=== PATIENT | female | born 1985 | race Caucasian/White ===

== ENCOUNTER 2019-06-18 09:36 | Emergency (ER) | payer OTHER ==
[~2019-06-18] VITALS: Ht 162.6 cm; Wt 77.1 kg
[2019-06-18] MEDS ORDERED: PROPRANOLOL HCL40 MG PO (09:51)
[2019-06-18] MEDS ORDERED: HYDROXYZINE HCL25 MG PO (09:51)
[2019-06-18] MEDS ORDERED: ZITHROMAX250 MG PO (09:52)
[2019-06-18] MEDS ORDERED: TRAZODONE HCL50 MG PO (09:52)
[2019-06-18] MEDS ORDERED: ABILIFY15 MG PO ×2 (09:53→10:18)
[2019-06-18] MEDS ORDERED: MINIPRESS1 MG PO (09:54)
[2019-06-18] MEDS ORDERED: PROPRANOLOL HCL20 MG PO (10:18)
== END 2019-06-18 11:58 | disposition home or self-care (01) ==
LOC: ED 09:36
DX: F32.9 Major depressive disorder, single episode, unspecified (principal); F20.9 Schizophrenia, unspecified; I10 Essential (primary) hypertension; F17.200 Nicotine dependence, unspecified, uncomplicated; Z88.0 Allergy status to penicillin; Z79.899 Other long term (current) drug therapy
CPT/HCPCS: 80053; 80176; 81001; 84443; 85025; 99284; G0480

== ENCOUNTER 2020-03-10 21:57 | Emergency (ER) | payer OTHER ==
[~2020-03-10] VITALS: Ht 162.6 cm; Wt 77.1 kg
--- OUTSIDE RECORDS SUMMARY | ~2020-03-10 | XMS | Encounter Summary ---
Demographics + + + | Address | [address] | | | [place] [address] | + + + | Home Phone | | + + + | Preferred Language | Unknown | + + + | Marital Status | | + + + | Hindu Affiliation | Unknown | + + + | Race | Unknown | + + + | Ethnic Group | Unknown | + + + Author + + + | Author | [facility] | | | and [place] | + + + | Organization | [facility] | | | and [place] | + + + | Address | Unknown | + + + | Phone | Unavailable | + + + Support + + +---------+ + | Name | Relationship | Address | Phone | + + +---------+ + | Yodit Andrew | ECON | Unknown | | + + +---------+ + Care Team Providers + +------+ + | Care Waist Presser Name | Role | Phone | + +------+ + | Demetrius Chakraborty | PCP | | | MD | | | + +------+ + Reason for Visit +--------+ + | Reason | Comments | +--------+ + | URI | x 3 days; assoc. with yellow phlegm, sinus congestion w/ clear | | | drainage, body aches, sore throat, bilateral ear pain | +--------+ + Encounter Details +--------+---------+ + + + | Date | Type | Department | Care Team | Description | +--------+---------+ + + + | 06/14/ | Office | [facility] | Ronda Rodriguez | Exudative | | 2019 | Visit | [facility] [address] | [address] | pharyngitis (Primary | | | | [address] | [place] | Dx); Anxiety; | | | | [address] [facility] | [place] [address] | Essential | | | | [place] [address] | [phone] | hypertension | | | | [phone] | | | +--------+---------+ + + + Social History + + + +--------+ + | Tobacco Use | Types | Packs/Day | Years | Date | | | | | Used | | + + + +--------+ + | Current Every Day | Cigarettes | | | Started: 2005 | | Smoker | | | | | + + + +--------+ + + +---+---+---+ | Smokeless Tobacco: | | | | | Never Used | | | | + +---+---+---+ + + | Tobacco Cessation: Ready to Quit: No; Counseling Given: No | + + + + +---------+ + | Alcohol Use | Drinks/Week | oz/Week | Comments | + + +---------+ + | Never | | | | + + +---------+ + + + + + | Alcohol Habits | Answer | Date Recorded | + + + + | How often do you have a drink containing | Never | 06/14/2019 | | alcohol? | | | + + + + | How many drinks containing alcohol do you | Not asked | | | have on a typical day when you are | | | | drinking? | | | + + + + | How often do you have six or more drinks on | Not asked | | | one occasion? | | | + + + + + + + | Sex Assigned at | Date Recorded | | | | + + + | Not on file | | + + + + + + + | Job Start Date | Occupation | Industry | + + + + | Not on file | Not on file | Not on file | + + + + + + + + | Travel History | Travel Start | Travel End | + + + + + + | No recent travel history available. | + + documented as of this encounter Last Filed Vital Signs + + + + + | Vital Sign | Reading | Time Taken | Comments | + + + + + | Blood Pressure | 110/74 | 06/14/2019 11:34 AM | | | | | PDT | | + + + + + | Pulse | 110 | 06/14/2019 11:34 AM | | | | | PDT | | + + + + + | Temperature | 36.9 C (98.5 F) | 06/14/2019 11:34 AM | | | | | PDT | | + + + + + | Respiratory Rate | 16 | 06/14/2019 11:34 AM | | | | | PDT | | + + + + + | Oxygen Saturation | 98% | 06/14/2019 11:34 AM | | | | | PDT | | + + + + + | Inhaled Oxygen | - | - | | | Concentration | | | | + + + + + | Weight | 77.1 kg (170 lb) | 06/14/2019 11:34 AM | | | | | PDT | | + + + + + | Height | 162.6 cm (5' 4") | 06/14/2019 11:34 AM | | | | | PDT | | + + + + + | Body Mass Index | 29.18 | 06/14/2019 11:34 AM | | | | | PDT | | + + + + + documented in this encounter Patient Instructions Patient Instructions Ronda Rodriguez ARNP - 06/14/2019 11:20 AM PDTFormatting of this n ote might be different from the original. Life After Combat: Coping with an Anxiety Disorder In combat, you were under a lot of stress. You were in a strange place. You were away from your home and family. You lived with the constant threat of danger, violence, and personal h arm. You may have been asked to do things that challenged you in unexpected ways. c ulture can be demanding, with long days, short nights, and little room for emotion. Being br ave is standard practice. Anxiety is a healthy response to stress like this. But too much an xiety can be a problem. It may start kicking in at the wrong time. Or it may never go away. This causes physical and emotional discomfort. For some people anxiety can become so severe that it causes problems in daily life, at work or school, and in relationships. When anxiety becomes such a big part of your life, it s an anxiety disorder. Treatment can help you get your anxiety disorder under control. Talk to your healthcare pro vider about the best treatment options for you. How anxiety helps keep you safe Anxiety is an extreme form of worry and stress. When you re threatened, there s rarely time to decide how to react. Instead, the body s automatic defenses kick in. Your body is flooded with anxiety hormones. Thiscauses physical and emotional responses. Your heart pum ps harder. Your muscles tense. You tremble or sweat. Emotionally, you feel intense worry, fe ar, or dread. These sensations and emotions alert you to danger and help you react quickly. In response to a threat, anxiety prompts you to do what is needed to protect yourself. When anxiety becomes a problem In a war zone you re on high alert. Even if there is no immediate threat, danger can pres ent itself at any time. You may be worried for your own safety and the safety of others. It s natural to experience anxiety in this situation. But the anxious feeling may continue af ter you leave the war zone. Even back at home, you may be on constant alert. Or extreme anxi ety may pop up over minor issues. This unexplained anxiety makes it hard to live and enjoy y our daily life. If this sounds like what s happening to you, you may have an anxiety disor kirsten. Someone with an anxiety disorder may: Have panic attacks. A panic attack is an abrupt, intense anxiety response. It includes e xtreme anxiety, severe physical symptoms (like a pounding heart or difficulty breathing), an d a strong desire to escape. You may suddenly feel closed in or all alone, even if you re in an open, public place. Most panic attacks start suddenly, for no clear reason. The attack can last around 5 to 20 minutes. During an attack, you may think that you re having a hea rt attack, going crazy, or dying. Feel anxious all the time. You might worry about money, your family and friends, work, w ar, or the world in general. You might not even be sure what you re anxious about. Whateve r the cause of your worry, you have a strong fear that the worst will happen. This generaliz ed anxiety affects your quality of life and makes it hard to function. Have intense anxiety in certain situations. For example, you may fear spending time in t he dark or in enclosed spaces. These fears (sometimes called phobias) may relate to somethin g that happened in combat. Or they may not. To escape the anxiety, you may try to avoid the situation that prompts it. Such avoidance can have a serious impact on your life. Feel a strong need to act on anxiety-provoking thoughts. Sometimes an anxiety disorder m akes certain unwanted thoughts invade your mind. You know the thoughts are irrational. But y ou still feel a compulsive need to act on them, often in unhealthy ways. For example, you ma y constantly check your doors to make sure they re locked. Or you might walk a perimeter a round your house to make sure no one is watching. Doing so helps temporarily relieve the anx iety, but it can become very disruptive to daily life. Symptoms of anxiety disorders Anxiety makes you feel worried and fearful. It can also cause physical symptoms. In fact, m any people with anxiety disorders first go to the doctor to get checked for a physical probl em. Symptoms can include: A pounding or racing heartbeat Shortness of breath Chest pain Dizziness or lightheadedness Restlessness or problems sleeping Muscle tension, especially in the neck and shoulders Nausea or stomach problems Headaches Rapid speech Trembling Fear Feeling irritable or on edge all the time Trouble concentrating Treatment will help you get your life back You may think that asking for help is a sign of weakness. In fact, taking action to make yo ur life better takes a lot of courage. With the right treatment, most people learn to manage anxiety. Your treatment may include counseling, a process during which you talk about your anxiety and related problems with a trained professional. Medications may also be prescribed . For many people with anxiety disorders, treatment includes both medication and counseling. Consider the following: Check with your doctor and rule out any physical problems that may be causing the anxiet y symptoms. If an anxiety disorder is diagnosed, seek mental healthcare. This is an illness and it c an respond to treatment. Most types of anxiety disorders will respond to "talk therapy" and medicine. Counseling involves working with a trained professional to better understand your anxiet y and learn skills to manage it. Many types of counseling have been shown to be effective tr eatments for anxiety disorders. In counseling, you ll likely learn new ways of responding to thoughts, feelings, and memories that make you anxious. This can improve your symptoms an d help change how you react to situations that make you anxious. Counseling could be done on e-on-one. Or you may have group therapy with other Vets who have been in combat. Medication may be prescribed. Some medications are used only for a short time, to treat immediate symptoms. Others are taken long-term, to help improve your mood over time. At firs t, medications and dosages may need to be adjusted. Tell your healthcare provider how a medi cation affects you. This way you can work together to find what works best for you. Be aware that a few weeks may pass before you see a medication s full impact on your mood. If you don t notice a change at first, you may simply need more time. But if you don t notice r esults after the first few weeks, tell your doctor. Educate yourself about anxiety disorders. Keep track of helpful online resources and stuart ks you can use during stressful periods. Try stress management techniques such as meditation. Consider online or in person support groups. Moving forward An anxiety disorder affects your emotions, health, and life. Be assured that treatment will help you get better. Taking the first step can be hard. But once you start treatment and se e how much better life can be, you ll be glad you did. To learn more, talk to your doctor or your [facility]mental health coordinator. You can also visit the [place] Department of 's Affairs Mental Health website and the Anxiety Disorders Associati on of [place]. Date Last Reviewed: 10/10/201619997527-2500 [employer] [address] [place] [address], [place] [address]. All righ ts reserved. This information is not intended as a substitute for professional medical care. Always follow your healthcare professional's instructions. Self-Care for Sore Throats Sore throats happen for many reasons, such as colds, allergies, and infections caused by vi ruses or bacteria. In any case, your throat becomes red and sore. Your goal for self-care is to reduce your discomfort while giving your throat a chance to heal. Moisten and soothe your throat Tips include the following: Try a sip of water first thing after waking up. Keep your throat moist by drinking6 or more glasses of clear liquids every day. Run a cool-air humidifier in your room overnight. Avoid cigarette smoke. Suck on throat lozenges, cough drops, hard candy, ice chips, or frozen fruit-juice bars. Use the sugar-free versions if your diet or medical condition requires them. Gargle to ease irritation Gargling every hour or2 can ease irritation. Try gargling with1 of these solutions: 1/4teaspoon of salt in1/2 cup of warm water An neon-ext-djuhvzv anesthetic gargle Use medicine for more relief Lquq-ljx-ycctwjg medicine can reduce sore throat symptoms. Ask your pharmacist if you have questions about which medicine to use: Ease pain with anesthetic sprays. Aspirin or an aspirin substitute also helps. Remember, never give aspirin to anyone 18 or younger, or if you are alreadytaking blood thinners. For sore throats caused by allergies, try antihistamines to block the allergic reaction. Remember: unless a sore throat is caused by a bacterial infection, antibiotics won t h elp you. Prevent future sore throats Prevention tips include the following: Stop smoking or reduce contact with secondhand smoke. Smoke irritates the tender throat lining. Limit contact with pets and with allergy-causing substances, such as pollen and mold. When you re around someone with a sore throat or cold, wash your hands often to keep v iruses or bacteria from spreading. Don t strain your vocal cords. Call your healthcare provider Contact your healthcare provider if you have: A temperature over 101F (38.3C) White spots on the throat Great difficulty swallowing Trouble breathing A skin rash Recent exposure to someone else with strep bacteria Severe hoarseness and swollen glands in the neck or jaw Date Last Reviewed: 05/10/201619996392-8147 [employer] [address] [place] [address]. All righ ts reserved. This information is not intended as a substitute for professional medical care. Always follow your healthcare professional's instructions. documented in this encounter Progress Notes Ronda Rodriguez ARNP - 06/14/2019 11:20 AM PDTFormatting of this note might be differen t from the original. Subjective: Avelina Gordon is a 34 y.o. female who presents to the clinic with a complaint of URI (x 3 d ays; assoc. with yellow phlegm, sinus congestion w/ clear drainage, body aches, sore throat, bilateral ear pain ) Pharyngitis This is a new problem. The current episode started in the past 7 days. The problem has been rapidly worsening. Neither side of throat is experiencing more pain than the other. The max imum temperature recorded prior to her arrival was 102 - 102.9 F. Associated symptoms includ e congestion, coughing, ear pain, headaches, a plugged ear sensation, shortness of breath an d trouble swallowing. Pertinent negatives include no diarrhea or vomiting. She has tried bessie taminophen and NSAIDs for the symptoms. The treatment provided mild relief. Allergies Allergen Reactions Penicillins Swelling "Closes my throat" Medications: Patient Reported Taking Dosage azithromycin (ZITHROMAX) 250 mg tablet (Taking) Take 2 tablets by mouth on day 1, and 1 t ablet by mouth every day Number of times this order has been changed since signin Order [place] hydrOXYzine hydrochloride (ATARAX) 25 mg tablet (Taking) Take 1 tablet by mouth every 6 h ours as needed for Itching. Take QID for anxiety Number of times this order has been changed since signin Order [place] propranolol (INDERAL) 40 mg tablet (Taking) Take 1 tablet by mouth 2 times daily. Number of times this order has been changed since signin Order [place] Past Medical History She has no past medical history on file. Past Surgical History She has no past surgical history on file. Social History Tobacco Use Smoking status: Current Every Day Smoker Types: Cigarettes Start date: 2004 Smokeless tobacco: Never Used Substance Use Topics Alcohol use: Never Frequency: Never Drug use: Never Review of Systems Constitutional: Positive for appetite change, fatigue and fever. HENT: Positive for congestion, ear pain, postnasal drip, rhinorrhea, sore throat and troubl e swallowing. Respiratory: Positive for cough, chest tightness, shortness of breath and wheezing. Gastrointestinal: Negative for constipation, diarrhea, nausea and vomiting. Genitourinary: Negative. Neurological: Positive for headaches. See HPI Objective: Vitals: 06/14/19 1134 BP: 110/74 Pulse: 110 Resp: 16 Temp: 36.9 C (98.5 F) TempSrc: Oral SpO2: 98% Weight: 77.1 kg (170 lb) Height: 1.626 m (5' 4") Patient's last menstrual period was 06/06/2019. Physical Exam Constitutional: She is oriented to person, place, and time. Vital signs are normal. She eryn ears well-developed and well-nourished. She is cooperative. She does not appear ill. No dist ress. HENT: Head: Normocephalic and atraumatic. Right Ear: Hearing, tympanic membrane, external ear and ear canal normal. Left Ear: Hearing, tympanic membrane, external ear and ear canal normal. Nose: No mucosal edema or rhinorrhea. Right sinus exhibits no frontal sinus tenderness. Lef t sinus exhibits no frontal sinus tenderness. Mouth/Throat: Uvula is midline and oropharynx is clear and moist. Eyes: Pupils are equal, round, and reactive to light. Conjunctivae and lids are normal. Neck: Neck supple. Cardiovascular: Normal rate, regular rhythm and normal heart sounds. Pulmonary/Chest: Effort normal and breath sounds normal. No stridor. No respiratory distres s. She has no wheezes. Lymphadenopathy: She has no cervical adenopathy. Neurological: She is alert and oriented to person, place, and time. Skin: Skin is warm and dry. No rash noted. Psychiatric: She has a normal mood and affect. Her behavior is normal. Nursing note and vitals reviewed. Recent Results (from the past 24 hour(s)) POCT Streptococcus A NAAT Result Value Ref Range Group A Strep, DNA POC Negative Negative Internal QC Acceptable Acceptable CULTURE SENT TO LAB Yes Assessment: 1. Exudative pharyngitis POCT Streptococcus A NAAT azithromycin (ZITHROMAX) 250 mg tablet Culture, Respiratory, Upper 2. Anxiety hydrOXYzine hydrochloride (ATARAX) 25 mg tablet 3. Essential hypertension propranolol (INDERAL) 40 mg tablet Plan: 1. Exudative pharyngitis - POCT Streptococcus A NAAT - azithromycin (ZITHROMAX) 250 mg tablet; Take 2 tablets by mouth on day 1, and 1 tablet by mouth every day Dispense: 6 tablet; Refill: 0 - Culture, Respiratory, Upper 2. Anxiety - hydrOXYzine hydrochloride (ATARAX) 25 mg tablet; Take 1 tablet by mouth every 6 hours as needed for Itching. Take QID for anxiety Dispense: 60 tablet; Refill: 1 3. Essential hypertension - propranolol (INDERAL) 40 mg tablet; Take 1 tablet by mouth 2 times daily. Dispense: 60 t ablet; Refill: 0 See AVS for patient instructions.Note: pt is in need to establish care with a PCP. Cassidy davis, she has need of new refills of her meds. She states she is trying to find a place to obta in a refill regarding her meds that include gabapentin, propranolol, hydroxyzine, and abilif y. Refills given for hydroxyzine and for propranolol only today. Diagnosis and plan including medications and side effects were discussed with the patient a nd information handout was given. Patient voices understanding of the plan and all questions were answered. Return if symptoms worsen or fail to improve. documented in this encounter Plan of Treatment Not on filedocumented as of this encounter Procedures + +--------+ + + + | Procedure Name | Priori | Date/Time | Associated Diagnosis | Comments | | | ty | | | | + +--------+ + + + | POCT STREPTOCOCCUS A | Routin | 06/14/2019 | Exudative | Results for this | | NAAT | e | 1:56 PM | pharyngitis | procedure are in the | | | | PDT | | results section. | + +--------+ + + + | CULTURE, | Routin | 06/14/2019 | Exudative | Results for this | | RESPIRATORY, UPPER | e | 12:00 PM | pharyngitis | procedure are in the | | | | PDT | | results section. | + +--------+ + + + documented in this encounter Results POCT Streptococcus A NAAT (06/14/2019 1:56 PM PDT) + + + + + + | Component | Value | Ref Range | Performed | Pathologist | | | | | At | Signature | + + + + + + | Group A | Negative | Negative | | | | Strep, DNA | | | | | | POC | | | | | + + + + + + | Internal QC | Acceptable | Acceptable | | | + + + + + + | CULTURE | Yes | | | | | SENT TO LAB | | | | | + + + + + + + + | Specimen | + + | | + + Culture, Respiratory, Upper (06/14/2019 12:00 PM PDT) + + + + + + | Component | Value | Ref Range | Performed | Pathologist | | | | | At | Signature | + + + + + + | Culture | No pathogens isolated | | [facility] | | | | [facility] | | [facility] | | | | | | [facility] | | + + + + + + | Culture | 3+ Usual Respiratory | | [facility] | | | | | [facility] | | | [facility] - | | | | | | LAB[facility]ATORY | | + + + + + + + + | Specimen | + + | Tissue - Specimen | | from throat | | (specimen) | + + + + + + + | Performing | Address | City/State/Zipcode | Phone Number | | Organization | | | | + + + + + | [facility] | [address] | [place], [place] | [phone] | | [facility] | | [address] | | | - LABORATORY | | | | + + + + + documented in this encounter Visit Diagnoses + + | Diagnosis | + + | Exudative pharyngitis - Primary | + + | Anxiety Anxiety state, unspecified | + + | Essential hypertension Unspecified essential hypertension | + + documented in this encounter
--- OUTSIDE RECORDS SUMMARY | ~2020-03-10 | XMS | Encounter Summary ---
Demographics + + + | Address | [address] | | | [place] [address] | + + + | Home Phone | | + + + | Preferred Language | Unknown | + + + | Marital Status | | + + + | Islam Affiliation | Unknown | + + + | Race | Unknown | + + + | Ethnic Group | Unknown | + + + Author + + + | Author | [facility] | | | and Claudioana | + + + | Organization | [facility] | | | [...] Team Providers + +------+ + | Care Power Transformer Repairer Name | Role | Phone | + +------+ + | Unknown, Practitioner MD | PCP | | + +------+ + Reason for Visit + + + | Reason | Comments | + + + | Mental Health | | | Evaluation | | + + + Encounter Details +--------+ + + + + | Date | Type | Department | Care Team | Description | +--------+ + + + + | 03/18/ | Emergency | [facility] | Nazario Bravo | Homicidal ideations | | 2019 - | | [facility] | DO Dann [address] | (Primary Dx); Drug | | | | CENTER [address] | [address] [place] | abuse, hallucinogens | | 03/19/ | | [place], [place] | [place] [address] | ([facility]) | | 2019 | | [address] | [phone] | | | | | [phone] | | | | | | | Tony Hobson | | | | | | MD Anoop [address] | | | | | | [address] [place] | | | | | | [place] [address] | | | | | | [phone] | | | | | | | | | | | | Bobby Rosales MD | | | | | | [address] | | | | | | [place], [place] | | | | | | [address] | | | | | | | | +--------+ + + + + Social History + +-------+ +--------+------+ | Tobacco Use | Types | Packs/Day | Years | Date | | | | | Used | | + +-------+ +--------+------+ | Never Assessed | | | | | + +-------+ +--------+------+ + + + | Sex Assigned at [...] + + + | Blood Pressure | 132/96 | 03/19/2019 11:20 AM | | | | | PDT | | + + + + + | Pulse | 139 | 03/19/2019 11:20 AM | | | | | PDT | | + + + + + | Temperature | 36.4 C (97.6 F) | 03/19/2019 11:20 AM | | | | | PDT | | + + + + + | Respiratory Rate | 20 | 03/19/2019 11:20 AM | | | | | PDT | | + + + + + | Oxygen Saturation | 97% | 03/19/2019 11:20 AM | | | | | PDT | | + + + + + | Inhaled Oxygen | - | - | | | Concentration | | | | + + + + + | Weight | - | - | | + + + + + | Height | - | - | | + + + + + | Body Mass Index | - | - | | + + + + + documented in this encounter Discharge Instructions AttachmentsThe following attachments cannot be sent through Care Everywhere.Drug Abuse (Ashley paris)documented in this encounter Plan of Treatment Not on filedocumented as of this encounter Procedures + +--------+ + + + | Procedure Name | Priori | Date/Time | Associated Diagnosis | Comments | | | ty | | | | + +--------+ + + + | HCG, URINE, QUAL | STAT | 03/18/2019 | | Results for this | | | | 2:03 PM | | procedure are in the | | | | PDT | | results section. | + +--------+ + + + | DRUGS OF ABUSE, | STAT | 03/18/2019 | | Results for this | | SCREEN, URINE | | 2:03 PM | | procedure are in the | | | | PDT | | results section. | + +--------+ + + + | URINALYSIS WITH | STAT | 03/18/2019 | | Results for this | | MICROSCOPIC | | 2:03 PM | | procedure are in the | | | | PDT | | results section. | + +--------+ + + + | CBC WITH | STAT | 03/18/2019 | | Results for this | | DIFFERENTIAL | | 1:30 PM | | procedure are in the | | | | PDT | | results section. | + +--------+ + + + | TSH | STAT | 03/18/2019 | | Results for this | | | | 1:30 PM | | procedure are in the | | | | PDT | | results section. | + +--------+ + + + | ALCOHOL | STAT | 03/18/2019 | | Results for this | | | | 1:30 PM | | procedure are in the | | | | PDT | | results section. | + +--------+ + + + | ACETAMINOPHEN LEVEL | STAT | 03/18/2019 | | Results for this | | | | 1:30 PM | | procedure are in the | | | | PDT | | results section. | + +--------+ + + + | SALICYLATE LEVEL | STAT | 03/18/2019 | | Results for this | | | | 1:30 PM | | procedure are in the | | | | PDT | | results section. | + +--------+ + + + | COMPREHENSIVE | STAT | 03/18/2019 | | Results for this | | METABOLIC PANEL | | 1:30 PM | | procedure are in the | | | | PDT | | results section. | + +--------+ + + + documented in this encounter Results , Urine, Qual (03/18/2019 2:03 PM PDT) + + + + + + | Component | Value | Ref Range | Performed | Pathologist | | | | | At | Signature | + + + + + + | HCG | Negative | Negative | [facility] | | | Qualitative | | | [facility] | | | , Urine | | | MEDICAL | | | | | | CENTER - | | | | | | LABORATORY | | + + + + + + + + | Specimen | + + | Urine | + + + + + + + | Performing | Address | City/State/Zipcode | Phone Number | | Organization | | | | + + + + + | [facility] | [address] | [place] | [phone] | | [facility] | | [address] | | | - LABORATORY | | | | + + + + + Urinalysis With Microscopic (03/18/2019 2:03 PM PDT) + + + + + + | Component | Value | Ref Range | Performed | Pathologist | | | | | At | Signature | + + + + + + | Color, | Yellow | Light Yellow, | [facility] | | | Urine | | Yellow, Straw | [facility] | | | | | | MEDICAL | | | | | | CENTER - | | | | | | LABORATORY | | + + + + + + | Clarity | Hazy (A) | Clear | [facility] | | | | | | [facility] | | | | | | MEDICAL | | | | | | CENTER - | | | | | | LABORATORY | | + + + + + + | pH, Urine | 6.0 | 5.0 - 8.0 | [facility] | | | | | | [facility] | | | | | | MEDICAL | | | | | | CENTER - | | | | | | LABORATORY | | + + + + + + | Specific | 1.015 | 1.001 - 1.030 | [facility] | | | [place], | | | [facility] | | | Urine | | | MEDICAL | | | | | | CENTER - | | | | | | LABORATORY | | + + + + + + | Protein, | Negative | Negative | [facility] | | | Urine | | | [facility] | | | | | | MEDICAL | | | | | | CENTER - | | | | | | LABORATORY | | + + + + + + | Blood, | Large (A) | Negative | [facility] | | | Urine | | | [facility] | | | | | | MEDICAL | | | | | | CENTER - | | | | | | LABORATORY | | + + + + + + | Glucose, | Negative | Negative | [facility] | | | Urine | | | [facility] | | | | | | MEDICAL | | | | | | CENTER - | | | | | | LABORATORY | | + + + + + + | Ketones, | Trace (A) | Negative | [facility] | | | Urine | | | [facility] | | | | | | MEDICAL | | | | | | CENTER - | | | | | | LABORATORY | | + + + + + + | Bilirubin, | Negative | Negative | [facility] | | | Urine | | | [facility] | | | | | | MEDICAL | | | | | | CENTER - | | | | | | LABORATORY | | + + + + + + | Nitrite, | Negative | Negative | [facility] | | | Urine | | | [facility] | | | | | | MEDICAL | | | | | | CENTER - | | | | | | LABORATORY | | + + + + + + | Leukocyte | Negative | Negative | [facility] | | | Esterase, | | | [facility] | | | Urine | | | MEDICAL | | | | | | CENTER - | | | | | | LABORATORY | | + + + + + + | Urobilinoge | Negative | 0.2 mg/dL, 1.0 | [facility] | | | n, Urine | | mg/dL, Negative | [facility] | | | | | | MEDICAL | | | | | | CENTER - | | | | | | LABORATORY | | + + + + + + | White Blood | 5-10 (A) | 0 - 2 /HPF | [facility] | | | Cells, | | | [facility] | | | Urine | | | MEDICAL | | | | | | CENTER - | | | | | | LABORATORY | | + + + + + + | Red Blood | 10-15 (A) | 0 - 2 /HPF | [facility] | | | Cells, | | | [facility] | | | Urine | | | MEDICAL | | | | | | CENTER - | | | | | | LABORATORY | | + + + + + + | Squamous | >100 (A) | 0 - 2 /LPF | [facility] | | | Epithelial | | | [facility] | | | Cells, | | | MEDICAL | | | Urine | | | CENTER - | | | | | | LABORATORY | | + + + + + + | Bacteria, | 1+ (A) | Negative /HPF | [facility] | | | Urine | | | [facility] | | | | | | MEDICAL | | | | | | CENTER - | | | | | | LABORATORY | | + + + + + + | Mucus, | Present (A) | Negative /LPF | [facility] | | | Urine | | | [facility] | | | | | | MEDICAL | | | | | | CENTER - | | | | | | LABORATORY | | + + + + + + | Amorphous | Few (A) | None Seen /HPF | [facility] | | | Crystals, | | | [facility] | | | Urine | | | MEDICAL | | | | | | CENTER - | | | | | | LABORATORY | | + + + + + + + + | Specimen | + + | Urine - Urine | | specimen (specimen) | + + + + + + + | Performing | Address | City/State/Zipcode | Phone Number | | Organization | | | | + + + + + | [facility] | [address] | [place] | [phone] | | [facility] | | [address] | | | - LABORATORY | | | | + + + + + Drugs of Abuse, Screen, Urine (03/18/2019 2:03 PM PDT) + + + + + + | Component | Value | Ref Range | Performed | Pathologist | | | | | At | Signature | + + + + + + | Amphetamine | Positive (A) | Negative | [facility] | | | Screen, | | | [facility] | | | Urine | | | MEDICAL | | | | | | CENTER - | | | | | | LABORATORY | | + + + + + + | Barbiturate | Negative | Negative | [facility] | | | s Screen, | | | [facility] | | | Urine | | | MEDICAL | | | | | | CENTER - | | | | | | LABORATORY | | + + + + + + | Benzodiazep | Negative | Negative | [facility] | | | miranda | | | [facility] | | | Screen, | | | MEDICAL | | | Urine | | | CENTER - | | | | | | LABORATORY | | + + + + + + | Cannabinoid | Positive (A) | Negative | [facility] | | | s Screen, | | | [facility] | | | Urine | | | MEDICAL | | | | | | CENTER - | | | | | | LABORATORY | | + + + + + + | Cocaine | Negative | Negative | [facility] | | | Screen, | | | [facility] | | | Urine | | | MEDICAL | | | | | | CENTER - | | | | | | LABORATORY | | + + + + + + | Methadone | Negative | Negative | [facility] | | | Screen, | | | [facility] | | | Urine | | | MEDICAL | | | | | | CENTER - | | | | | | LABORATORY | | + + + + + + | Opiates | Negative | Negative | [facility] | | | Screen, | | | [facility] | | | Urine | | | MEDICAL | | | | | | CENTER - | | | | | | LABORATORY | | + + + + + + + + | Specimen | + + | Urine - Urine | | specimen (specimen) | + + + + + + + | Performing | Address | City/State/Zipcode | Phone Number | | Organization | | | | + + + + + | [facility] | [address] | [place] | [phone] | | [facility] | | [address] | | | - LABORATORY | | | | + + + + + TSH (03/18/2019 1:30 PM PDT) + +-------+ + + + | Component | Value | Ref Range | Performed | Pathologist | | | | | At | Signature | + +-------+ + + + | TSH | 1.05 | 0.55 - 4.78 | [facility] | | | | | uIU/mL | [facility] | | | | | | MEDICAL | | | | | | CENTER - | | | | | | LABORATORY | | + +-------+ + + + + + | Specimen | + + | Blood | + + + + + + + | Performing | Address | City/State/Zipcode | Phone Number | | Organization | | | | + + + + + | [facility] | [address] | [place] | [phone] | | [facility] | | [address] | | | - LABORATORY | | | | + + + + + Salicylate Level (03/18/2019 1:30 PM PDT) + +-------+ + + + | Component | Value | Ref Range | Performed | Pathologist | | | | | At | Signature | + +-------+ + + + | Salicylate | <3.0 | <30.1 mg/dL | [facility] | | | Level | | | [facility] | | | | | | MEDICAL | | | | | | CENTER - | | | | | | LABORATORY | | + +-------+ + + + + + | Specimen | + + | Blood | + + + + + + + | Performing | Address | City/State/Zipcode | Phone Number | | Organization | | | | + + + + + | [facility] | [address] | [place], [place] | [phone] | | [facility] | | [address] | | | - LABORATORY | | | | + + + + + Acetaminophen Level (03/18/2019 1:30 PM PDT) + +-------+ + + + | Component | Value | Ref Range | Performed | Pathologist | | | | | At | Signature | + +-------+ + + + | Acetaminoph | <2 | <=2 ug/mL | [facility] | | | en Level | | | [facility] | | | | | | MEDICAL | | | | | | CENTER - | | | | | | LABORATORY | | + +-------+ + + + + + | Specimen | + + | Blood | + + + + + + + | Performing | Address | City/State/Zipcode | Phone Number | | Organization | | | | + + + + + | [facility] | [address] | [place] | [phone] | | [facility] | | [address] | | | - LABORATORY | | | | + + + + + Ethanol (03/18/2019 1:30 PM PDT) + +-------+ + + + | Component | Value | Ref Range | Performed | Pathologist | | | | | At | Signature | + +-------+ + + + | ALCOHOL, | <6 | <=6 mg/dL | [facility] | | | SERUM/PLASM | | | [facility] | | | A | | | MEDICAL | | | | | | CENTER - | | | | | | LABORATORY | | + +-------+ + + + + + | Specimen | + + | Blood | + + + + + + + | Performing | Address | City/State/Zipcode | Phone Number | | Organization | | | | + + + + + | [facility] | [address] | [place] | [phone] | | [facility] | | [address] | | | - LABORATORY | | | | + + + + + Comprehensive Metabolic Panel (03/18/2019 1:30 PM PDT) + + + + + + | Component | Value | Ref Range | Performed | Pathologist | | | | | At | Signature | + + + + + + | Na | 138 | 136 - 145 | [facility] | | | | | mmol/L | [facility] | | | | | | MEDICAL | | | | | | CENTER - | | | | | | LABORATORY | | + + + + + + | K | 3.3 (L) | 3.4 - 5.1 | [facility] | | | | | mmol/L | [facility] | | | | | | MEDICAL | | | | | | CENTER - | | | | | | LABORATORY | | + + + + + + | Cl | 102 | 98 - 107 mmol/L | [facility] | | | | | | [facility] | | | | | | MEDICAL | | | | | | CENTER - | | | | | | LABORATORY | | + + + + + + | CO2 | 27 | 20 - 31 mmol/L | [facility] | | | | | | [facility] | | | | | | MEDICAL | | | | | | CENTER - | | | | | | LABORATORY | | + + + + + + | Anion Gap | 9 | 3 - 16 mmol/L | [facility] | | | | | | [facility] | | | | | | MEDICAL | | | | | | CENTER - | | | | | | LABORATORY | | + + + + + + | Glucose | 104 | 60 - 106 mg/dL | [facility] | | | | | | [facility] | | | | | | MEDICAL | | | | | | CENTER - | | | | | | LABORATORY | | + + + + + + | BUN | 10 | 9 - 23 mg/dL | [facility] | | | | | | [facility] | | | | | | MEDICAL | | | | | | CENTER - | | | | | | LABORATORY | | + + + + + + | Creatinine | 0.78 | 0.55 - 1.02 | [place] | | | | | mg/dL | [facility] | | | | | | MEDICAL | | | | | | CENTER - | | | | | | LABORATORY | | + + + + + + | eGFR if not | >60Comment: GLOMERULAR | >=60 | [facility] | | | | FILTRATION | mL/min/1.73m2 | [facility] | | | ANGUILLAN | RATE,ESTIMATED | | MEDICAL | | | | mL/min/1.84i3Ltlh than | | CENTER - | | | | 60 Chronic kidney | | LABORATORY | | | | disease,if found over a | | | | | | 3-month period.Less than | | | | | | 15 Kidney failureFor | | | | | | | | | | | | Americans,multiply the | | | | | | calculated GFR by 1.21. | | | | | | | | | | + + + + + + | Calcium | 9.8 | 8.7 - 10.4 | [facility] | | | | | mg/dL | [facility] | | | | | | MEDICAL | | | | | | CENTER - | | | | | | LABORATORY | | + + + + + + | Albumin | 4.7 | 3.2 - 4.8 g/dL | [facility] | | | | | | [facility] | | | | | | MEDICAL | | | | | | CENTER - | | | | | | LABORATORY | | + + + + + + | Bilirubin | 0.5 | 0.3 - 1.2 mg/dL | [facility] | | | Total | | | [facility] | | | | | | MEDICAL | | | | | | CENTER - | | | | | | LABORATORY | | + + + + + + | Total | 6.9 | 5.7 - 8.2 g/dL | [facility] | | | Protein | | | [facility] | | | | | | MEDICAL | | | | | | CENTER - | | | | | | LABORATORY | | + + + + + + | AST | 28 | 0 - 34 U/L | [facility] | | | | | | [facility] | | | | | | MEDICAL | | | | | | CENTER - | | | | | | LABORATORY | | + + + + + + | ALT | 19 | 10 - 49 U/L | [facility] | | | | | | [facility] | | | | | | MEDICAL | | | | | | CENTER - | | | | | | LABORATORY | | + + + + + + | Alkaline | 61 | 46 - 116 U/L | [facility] | | | Phosphatase | | | [facility] | | | | | | MEDICAL | | | | | | CENTER - | | | | | | LABORATORY | | + + + + + + | Globulin | 2.2 | 2.1 - 3.8 g/dL | [facility] | | | | | | [facility] | | | | | | MEDICAL | | | | | | CENTER - | | | | | | LABORATORY | | + + + + + + | Albumin/Pinky | 2.1 (H) | 0.8 - 1.9 | [facility] | | | bulin Ratio | | | [facility] | | | | | | MEDICAL | | | | | | CENTER - | | | | | | LABORATORY | | + + + + + + | BUN/Creatin | 12.8 | | [facility] | | | ine Ratio | | | [facility] | | | | | | MEDICAL | | | | | | CENTER - | | | | | | LABORATORY | | + + + + + + + + | Specimen | + + | Blood | + + + + + + + | Performing | Address | City/State/Zipcode | Phone Number | | Organization | | | | + + + + + | [facility] | [address] | [place] | [phone] | | [facility] | | [address] | | | - LABORATORY | | | | + + + + + CBC with Differential (03/18/2019 1:30 PM PDT) + + + + + + | Component | Value | Ref Range | Performed | Pathologist | | | | | At | Signature | + + + + + + | WBC | 8.4 | 4.0 - 11.0 K/uL | [facility] | | | | | | [facility] | | | | | | MEDICAL | | | | | | CENTER - | | | | | | LABORATORY | | + + + + + + | RBC | 4.89 | 3.70 - 5.20 | [facility] | | | | | M/uL | [facility] | | | | | | MEDICAL | | | | | | CENTER - | | | | | | LABORATORY | | + + + + + + | Hemoglobin | 14.4 | 11.5 - 16.0 | [facility] | | | | | g/dL | [facility] | | | | | | MEDICAL | | | | | | CENTER - | | | | | | LABORATORY | | + + + + + + | Hematocrit | 43.5 | 34.0 - 47.0 % | [facility] | | | | | | [facility] | | | | | | MEDICAL | | | | | | CENTER - | | | | | | LABORATORY | | + + + + + + | MCV | 89.0 | 83.0 - 101.0 fL | [facility] | | | | | | [facility] | | | | | | MEDICAL | | | | | | CENTER - | | | | | | LABORATORY | | + + + + + + | MCH | 29.4 | 28.0 - 35.0 pg | [facility] | | | | | | [facility] | | | | | | MEDICAL | | | | | | CENTER - | | | | | | LABORATORY | | + + + + + + | MCHC | 33.1 | 32.0 - 36.0 | [facility] | | | | | g/dL | [facility] | | | | | | MEDICAL | | | | | | CENTER - | | | | | | LABORATORY | | + + + + + + | RDW-CV | 13.0 | <15.0 % | [facility] | | | | | | [facility] | | | | | | MEDICAL | | | | | | CENTER - | | | | | | LABORATORY | | + + + + + + | RDW-SD | 42.5 | 35.1 - 46.3 fL | [facility] | | | | | | [facility] | | | | | | MEDICAL | | | | | | CENTER - | | | | | | LABORATORY | | + + + + + + | Platelet | 242 | 140 - 440 K/uL | [facility] | | | Count | | | [facility] | | | | | | MEDICAL | | | | | | CENTER - | | | | | | LABORATORY | | + + + + + + | MPV | 11.5 | 6.5 - 12.4 fL | [facility] | | | | | | [facility] | | | | | | MEDICAL | | | | | | CENTER - | | | | | | LABORATORY | | + + + + + + | % | 61.3 | 45.0 - 82.0 % | [facility] | | | Neutrophils | | | [facility] | | | | | | MEDICAL | | | | | | CENTER - | | | | | | LABORATORY | | + + + + + + | % | 28.1 | 20.0 - 45.0 % | [facility] | | | Lymphocytes | | | [facility] | | | | | | MEDICAL | | | | | | CENTER - | | | | | | LABORATORY | | + + + + + + | % Monocytes | 8.3 | 4.0 - 12.0 % | [facility] | | | | | | [facility] | | | | | | MEDICAL | | | | | | CENTER - | | | | | | LABORATORY | | + + + + + + | % | 1.2 | 0.0 - 5.0 % | [facility] | | | Eosinophils | | | [facility] | | | | | | MEDICAL | | | | | | CENTER - | | | | | | LABORATORY | | + + + + + + | % Basophils | 0.7 | 0.0 - 1.0 % | [facility] | | | | | | [facility] | | | | | | MEDICAL | | | | | | CENTER - | | | | | | LABORATORY | | + + + + + + | % Immature | 0.4Comment: For | 0.0 - 0.4 % | [facility] | | | Granulocyte | patients, use the | | [facility] | | | s | special reference ranges | | MEDICAL | | | | listed below. | | CENTER - | | | | | | LABORATORY | | + + + + + + | Absolute | 5.15 | 1.80 - 8.50 | [facility] | | | Neutrophils | | K/uL | [facility] | | | | | | MEDICAL | | | | | | CENTER - | | | | | | LABORATORY | | + + + + + + | Absolute | 2.36 | 0.60 - 3.20 | [facility] | | | Lymphocytes | | K/uL | [facility] | | | | | | MEDICAL | | | | | | CENTER - | | | | | | LABORATORY | | + + + + + + | Absolute | 0.70 | 0.00 - 1.00 | [facility] | | | Monocytes | | K/uL | [facility] | | | | | | MEDICAL | | | | | | CENTER - | | | | | | LABORATORY | | + + + + + + | Absolute | 0.10 | 0.00 - 0.40 | [facility] | | | Eosinophils | | K/uL | [facility] | | | | | | MEDICAL | | | | | | CENTER - | | | | | | LABORATORY | | + + + + + + | Absolute | 0.06 | 0.00 - 0.10 | [facility] | | | Basophils | | K/uL | [facility] | | | | | | MEDICAL | | | | | | CENTER - | | | | | | LABORATORY | | + + + + + + | Absolute | 0.03Comment: For | 0.00 - 0.03 | [facility] | | | Immature | patients, use | K/uL | [facility] | | | Granulocyte | the special reference | | MEDICAL | | | s | ranges listed below. | | CENTER - | | | | | | LABORATORY | | + + + + + + | % nRBC | 0 | 0 - 2 per 100 | [facility] | | | | | WBCs | [facility] | | | | | | MEDICAL | | | | | | CENTER - | | | | | | LABORATORY | | + + + + + + | Absolute | 0.00 | 0.00 - 0.01 | [facility] | | | nRBC | | K/uL | [facility] | | | | | | MEDICAL | | | | | | CENTER - | | | | | | LABORATORY | | + + + + + + + + | Specimen | + + | Blood | + + + + + | Narrative | Performed At | + + + | IMMATURE GRANULOCYTES - For patients, use the following | [facility] | | reference ranges: Trim. Absolute (K/uL) Percentage (%) | [facility] | | 1st 0.003-0.091 K/uL 0.0-0.9% 2nd 0.007-0.247 K/uL | MEDICAL CENTER | | 0.1-2.0% 3rd 0.018-0.456 K/uL 0.1-2.0% | - LABORATORY | + + + + + + + + | Performing | Address | City/State/Zipcode | Phone Number | | Organization | | | | + + + + + | [facility] | [address] | [place] | [phone] | | [facility] | | [address] | | | - LABORATORY | | | | + + + + + documented in this encounter Visit Diagnoses + + | Diagnosis | + + | Homicidal ideations - Primary Homicidal ideation | + + | Drug abuse, hallucinogens (HCC) Hallucinogen abuse, unspecified | + + documented in this encounter Administered Medications + +--------+ +-------+------+------+ | Medication Order | MAR | Action | Dose | Rate | Site | | | Action | Date | | | | + +--------+ +-------+------+------+ | hydrOXYzine hydrochloride | Given | 03/18/20 | 10 mg | | | | (ATARAX) tablet 10 mg 10 mg, | | 19 5:42 | | | | | Oral, ONCE, 03/18/19 at 1730, | | PM PDT | | | | | For 1 dose | | | | | | + +--------+ +-------+------+------+ +---+---+ | | | +---+---+ + +-------+ +------+---+---+ | LORazepam (ATIVAN) tablet 1 mg | Given | 03/19/20 | 1 mg | | | | 1 mg, Oral, ONCE, 03/19/19 at | | 19 10:39 | | | | | 1030, For 1 dose | | AM PDT | | | | + +-------+ +------+---+---+ + +---+ | | | + +---+ | nicotine (NICODERM) 14 mg/24 hr | | | 1 patch 1 patch, Transdermal, | | | DAILY, First dose on 03/18/19 | | | at 2030 | | + +---+ | | | + +---+ documented in this encounter"
--- OUTSIDE RECORDS SUMMARY | ~2020-03-10 | XMS | Encounter Summary ---
Demographics + + + | Address | [address] | | | [place] [address] | + + + | Home Phone | | + + + | Preferred Language | Unknown | + + + | Marital Status | | + + + | Pentecostalism Affiliation | Unknown | + + + | Race | Unknown | + + + | Ethnic Group | Unknown | + + + Author + + + | Author | [facility] | | | and Claudioana | + + + | Organization | [facility] | | | [...] Team Providers + +------+ + | Care Home Assessment Nurse Name | Role | Phone | + [...] | | | | CENTER [address] | [address] [place] | abuse, hallucinogens | | 03/19/ | | [place], [place] | [place] [address] | ([facility]) | | 2019 | | [address] | [phone] | | | | | [phone] | | | | | | | Tony Hobson | | | | | | MD Anoop [address] | | | | | | [address] [place] | | | | | | [place] [address] | | | | | | [phone] | | | | | | | | | | | | Bobby Rosales MD | | | | | | [address] | | | | | | [place], [place] | | | | | | [address] | | | | | | | [...] + | [facility] | [address] | [place] | [phone] | | [facility] | | [address] | | | - LABORATORY | | [...] - 1.030 | [facility] | | | [place], | | | [facility] | | [...] + | [facility] | [address] | [place] | [phone] | | [facility] | | [address] | | | - LABORATORY | | [...] [address] | [place] | [phone] | | [facility] | | [address] | | | - LABORATORY | | [...] + | [facility] | [address] | [place] | [phone] | | [facility] | | [address] | | | - LABORATORY | | [...] + | [facility] | [address] | [place], [place] | [phone] | | [facility] | | [address] | | | - LABORATORY | | [...] | + + + + + | [facility] | [address] | [place] | [phone] | | [facility] | | [address] | | | - LABORATORY | | [...] [address] | [place] | [phone] | | [facility] | | [address] | | | - LABORATORY | | [...] | 0.78 | 0.55 - 1.02 | [facility] | | | | | mg/dL | [facility] | | | | | | [facility]ICAL | | | | | | CENTER - | | | | | | LABORATORY | | + + + + + + | eGFR if not | >60Comment: GLOMERULAR | >=60 | [facility] | | | | FILTRATION | mL/min/1.73m2 | [facility] | | | [place] | RATE,ESTIMATED | | MEDICAL | | | | mL/min/1.73i0Svif than | | CENTER - | | [...] + | [facility] | [address] | [place] | [phone] | | [facility] | | [address] | | | - LABORATORY | | [...] [address] | [place] | [phone] | | [facility] | | [address] | | | - LABORATORY | | [...]
--- OUTSIDE RECORDS SUMMARY | ~2020-03-10 | XMS | Clinical Summary ---
Demographics + + + | Address | [address] | | | [place] [address] | + + + | Home Phone | | + + + | Preferred Language | Unknown | + + + | Marital Status | | + + + | Advent Affiliation | Unknown | + + + | Race | Unknown | + + + | Ethnic Group | Unknown | + + + Author + + + | Author | [facility] | | | and Claudioana | + + + | Organization | [facility] | | | [...] Team Providers + +------+ + | Care Bereavement Counselor Name | Role | Phone | + +------+ + | Demetrius Chakraborty | PCP | | | MD | | | + +------+ + Allergies + + + + + + | Active Allergy | Reactions | Severity | Noted | Comments | | | | | Date | | + + + + + + | Penicillins | Swelling | High | 06/14/20 | "Closes my throat" | | | | | 19 | | + + + + + + | Diazepam | Unknown | | 03/18/20 | | | | | | 19 | | + + + + + + Medications + + + +---------+------+------+-------+ | Medication | Sig | Dispensed | Refills | Star | End | Statu | | | | | | t | Date | s | | | | | | Date | | | + + + +---------+------+------+-------+ | azithromycin | Take 2 tablets by | 6 | 0 | 09/0 | | Activ | | (ZITHROMAX) 250 mg | mouth on day 1, and | tablet | | 02/26 | | e | | tabletIndications: | 1 tablet by mouth | | | 19 | | | | Exudative | every day | | | | | | | pharyngitis | | | | | | | + + + +---------+------+------+-------+ | hydrOXYzine | Take 1 tablet by | 60 | 1 | 09/0 | | Activ | | hydrochloride | mouth every 6 hours | tablet | | 5/20 | | e | | (ATARAX) 25 mg | as needed for | | | 19 | | | | tabletIndications: | Itching. Take QID | | | | | | | Anxiety | for anxiety | | | | | | + + + +---------+------+------+-------+ | propranolol | Take 1 tablet by | 60 | 0 | 09/0 | | Activ | | (INDERAL) 40 mg | mouth 2 times daily. | tablet | | 5/20 | | e | | tabletIndications: | | | | 19 | | | | Essential | | | | | | | | hypertension | | | | | | | + + + +---------+------+------+-------+ Active Problems No known active problems Immunizations + + + + | Name | Administration Dates | Next Due | + + + + | INFLUENZA PF | 09/30/2004 | | | TRIVALENT(PED/ADOL/A | | | | DULT), PSKT | | | + + + + Social History + + [...] alcohol do you | Not asked | 06/14/2019 | | have on a typical day when you are | | | | drinking? | | | + + + + | How often do you have six or more drinks on | Not asked | 06/14/2019 | | one occasion? | | | [...] recent travel history available. | + + Last Filed Vital Signs + + + [...] | | + + + + + Plan of Treatment + + + + + | Health Maintenance | Due Date | Last Done | Comments | + + + + + | Vaccine: | | | | | Pneumococcal 19-64 | 0 | | | | (1 of 1 - PPSV23) | | | | + + + + + | Vaccine: | | | | | Dtap/Tdap/Td (1 - | 5 | | | | Tdap) | | | | + + + + + | Cervical Cancer | | | | | Screening (Pap) | 4 | | | + + + + + | Vaccine: Influenza | | 09/30/2004 | | | (Season Ended) | 0 | | | + + + + + Results Not on filefrom Last 3 Months Insurance + +--------+ +--------+ +---------+--------+ | Payer | Benefi | Subscriber | Effect | Phone | Address | Type | | | t Plan | ID | jeanna | | | | | | / | | Dates | | | | | | Group | | | | | | + +--------+ +--------+ +---------+--------+ | [employer] | [employer] | [id number] | 06/14/20 | [phone] | | Medica | | MEDICAID HMO | HEALTH | | 19-Pre | 1 | | id | | | MDCD | | sent | | | | | | [place]MO [place] | | | | | | + +--------+ +--------+ +---------+--------+ + +--------+ +--------+ + + | Guarantor Name | Accoun | Relation to | Date | Phone | Billing Address | | | t Type | Patient | of | | | | | | | | | | + +--------+ +--------+ + + | Avelina Gordon | Person | Self [birth year] | [address] | | | al/Fam | | 1985 | [phone] | [place] [address] | | | evelina | | | 4 (Home) | | + +--------+ +--------+ + + Advance Directives + + + + + | Type | Date Recorded | Patient | Explanation | | | | Key Worker | | + + + + + | Power of | | | | | Gis Engineer | | | | + + + + + | Power of | | | | | Gis Engineer | | | | + + + + + | Advance | 03/19/2019 2:13 | | | | Directive | AM | | | + + + + + | Advance | | | | | Directive | | | | + + + + +
--- OUTSIDE RECORDS SUMMARY | ~2020-03-10 | XMS | Clinical Summary ---
Demographics + + + | Address | [address] | | | [place] [address] | + + + | Home Phone | | + + + | Preferred Language | Unknown | + + + | Marital Status | | + + + | Caodaism Affiliation | Unknown | + + + | Race | Unknown | + + + | Ethnic Group | Unknown | + + + Author + + + | Author | [facility] | | | and Claudioana | + + + | Organization | [facility] | | | and [...] Team Providers + +------+ + | Care Paper Machine Tender Name | Role | Phone | + [...] | [employer] | [employer] | [id number] | 06/14/20 | [phone] | | Medica | | MEDICAID HMO [...] | 1985 | [phone] | [place] [address] | | | evelina | | | 4 (Home) | | + +--------+ +--------+ + + Advance Directives + + + + + | Type | Date Recorded | Patient | Explanation | | | | Phosphoric Acid Operator | | + + + + + | Power of | | | | | Board Mixer Tender | | | | + + + + + | Power of | | | | | Board Mixer Tender | | | | + + + + + | Advance | 03/19/2019 2:13 | | | | Directive | AM | | | + + + + + | Advance | | | | | Directive | | | | + + + + +
--- OUTSIDE RECORDS SUMMARY | ~2020-03-10 | XMS | Encounter Summary ---
Demographics + + + | Address | [address] | | | [place] [address] | + + + | Home Phone | | + + + | Preferred Language | Unknown | + + + | Marital Status | | + + + | Restorationist Affiliation | Unknown | + + + | Race | Unknown | + + + | Ethnic Group | Unknown | + + + Author + + + | Author | [facility] | | | and Claudioana | + + + | Organization | [facility] | | | [...] Team Providers + +------+ + | Care Municipal Court Judge Name | Role | Phone | + [...] Exudative | | 2019 | Visit | [facility] [address] | [place] | pharyngitis (Primary | | | | [address] | [place] | Dx); Anxiety; | | | | [address] [facility] | [place] [address] | Essential | | | | [place] [address] | [phone] | hypertension | | | | [phone] | | | +--------+---------+ + + + [...] [employer] on [employer]. Date Last Reviewed: 10/10/201619990910-4228 [employer]. [address] [place] [address], [place] [address]. All righ ts reserved. This information is [...] salt in1/2 cup of warm water An honl-uvj-ofimjeh anesthetic gargle Use medicine for more relief Sqqo-uof-wnvaxcw medicine can reduce sore throat symptoms. Ask [...] the neck or jaw Date Last Reviewed: 05/10/201619996281-5158 [employer]. [address] [place] [address]. All righ ts reserved. This information is [...] has been changed since signin [facility] [place] hydrOXYzine hydrochloride (ATARAX) 25 mg tablet (Taking) Take 1 tablet by mouth every 6 h ours as needed for Itching. Take QID for anxiety Number of times this order has been changed since signin [facility] [place] propranolol (INDERAL) 40 mg tablet (Taking) Take 1 tablet by mouth 2 times daily. Number of times this order has been changed since signin [facility] [place] Past Medical History She has no past [...] ST. | [address] | [place], [place] | [phone] | | [facility] | | [address] | | | - LABORATORY | | | | + + + + + documented in this encounter Visit Diagnoses + + | Diagnosis | + + | Exudative pharyngitis - Primary | + + | Anxiety Anxiety state, unspecified | + + | Essential hypertension Unspecified essential hypertension | + + documented in this encounter
[~2020-03-10 21:57] MED LIST: ABILIFY15 MG PO; HYDROXYZINE HCL25 MG PO; MINIPRESS1 MG PO; PROPRANOLOL HCL20 MG PO; PROPRANOLOL HCL40 MG PO; TRAZODONE HCL50 MG PO; ZITHROMAX250 MG PO
[2020-03-10] MEDS ORDERED: LISINOPRIL10 MG PO (22:22)
--- NOTE | 2020-03-11 17:40 | EKG ---
[facility] [address] [facility] [place], [place] [address] Signed Normal sinus rhythm with sinus arrhythmia Normal ECG No previous ECGs available Confirmed by ROSA LAWRENCE DO ([id number]) on 03/11/2020 5:39:57 PM Electronically Signed By: ROSA LAWRENCE DO 03/11/20 1740 PATIENT NAME: CHANTAL FOSS Electrocardiogram DATE OF : 83 PHYSICIAN: ROSA LAWRENCE DO REPORT #: [id number] REPORT IS CONFIDENTIAL AND NOT TO BE RELEASED WITHOUT AUTHORIZATION
== END 2020-03-11 00:29 | disposition home or self-care (01) ==
LOC: ED 21:57
DX: I95.2 Hypotension due to drugs (principal); T46.4X5A Adverse effect of angiotensin-converting-enzyme inhibitors, initial encounter; S00.03XA Contusion of scalp, initial encounter; F17.200 Nicotine dependence, unspecified, uncomplicated; Z88.0 Allergy status to penicillin; Z79.899 Other long term (current) drug therapy; W18.30XA Fall on same level, unspecified, initial encounter
CPT/HCPCS: 80053; 81001; 83880; 84703; 85025; 93005; 93010; 96360; 96361; 99284-25; J7030

== ENCOUNTER 2024-09-04 14:21 | Emergency (ER) | payer OTHER ==
[~2024-09-04] VITALS: Ht 162.6 cm; Wt 89.4 kg
[~2024-09-04 14:21] MED LIST changes: +LISINOPRIL10 MG PO
[2024-09-04] MEDS ORDERED: AMLODIPINE BESYL5 MG PO (14:32)
[2024-09-04 14:54] LABS: BILIRUBIN, URINE POSITIVE (negative); BLOOD/HGB, URINE TRACE-I (Negative); KETONE, URINE NEGATIVE (Negative); LEUK ESTERASE, URINE NEGATIVE (negative); NITRITE, URINE NEGATIVE (negative)
[2024-09-04 14:57] LABS: AMPHETAMINES, UR POSITIVE (NEGATIVE); BARBITURATES, UR NEGATIVE (NEGATIVE); BENZODIAZEPINES, UR NEGATIVE (NEGATIVE); COCAINE, UR NEGATIVE (NEGATIVE); MARIJUANA (THC), UR POSITIVE (NEGATIVE); METHAMPHETAMINE, UR POSITIVE (NEGATIVE); OPIATES, UR NEGATIVE (NEGATIVE); OXYCODONE, UR NEGATIVE (NEGATIVE); PHENCYCLIDINE, UR NEGATIVE (NEGATIVE); TRICYCLIC ANTIDEPRESSANT, UR POSITIVE (NEGATIVE)
[2024-09-04 14:58] LABS: BUPRENORPHINE,UR NEGATIVE (NEGATIVE); MDMA, UR POSITIVE (NEGATIVE); METHADONE, UR NEGATIVE (NEGATIVE)
[2024-09-04 14:59] LABS: EPITHELIAL CELLS, URINE SQUAMOUS 4+ /lpf (0-1+); RED BLOOD CELLS, URINE 0-1 /hpf (0-5); WHITE BLOOD CELLS, URINE 0-1 /HPF (0-5)
[2024-09-04 15:00] LABS: BACTERIA, URINE RARE /hpf (negative); REFLEX CULTURE, URINE No (No)
[2024-09-04 15:06] LABS: BASOPHILS 1.1 % (0-2); EOSINOPHILS 0.9 % (0-6); HEMATOCRIT 42.6 % (35.0-50.0); HEMOGLOBIN 14.3 g/dL (12.0-18.0); LYMPHOCYTES 21.4 % (24-44); MCH 29.6 (27-36); MCHC 33.5 g/dl (30-36); MCV 88.2 fl (81-99); MONOCYTES 7.8 % (0-12); NEUTROPHILS 68.8 % (39-80); PLATELET COUNT 314 K/uL (140-440); RBC 4.83 M/ul (4.3-5.7); RDW 13.7 (10.5-15.0)
[2024-09-04 15:31] LABS: ACETAMINOPHEN 0 ug/mL (10-30); ALBUMIN 3.8 g/dL (3.4-5.0); ALBUMIN/GLOBULIN RATIO 0.83 (1.1-2.4); ALCOHOL, MEDICAL <3 ng/dL (<3); ALKALINE PHOSPHATASE 100 U/L (46-116); ALT (SGPT) 25 U/L (14-59); AST (SGOT) 17 U/L (15-37); BILIRUBIN, TOTAL 0.3 ng/dL (0.2-1.0); BUN/CREATININE RATIO 13.04 (6.0-28.6); CALCIUM 9.7 mg/dL (8.5-10.1); CARBON DIOXIDE 30 mmol/L (21-32); CHLORIDE 103 mmol/L (98-107); CREATININE, SERUM 1.15 mg/dL (0.55-1.02); GLOMERULAR FILTRATION RATE,EST 62 mL/min (>60); PROTEIN, TOTAL 8.4 g/dL (6.4-8.2); SALICYLATE 1.1 mg/dL (2.8-20.0); TSH, 3RD GENERATION 1.469 uIU/mL (0.358-3.740); UREA NITROGEN 15 mg/dL (7-18)
[2024-09-04] MEDS ORDERED: LORazepam 1 MG TAB PO ONE (17:00)
[2024-09-04] MEDS ORDERED: OLANZapine 10 MG TABDIS PO ONE (17:45)
[2024-09-04] MEDS ORDERED: ONDANSETRON 4 MG TAB ODT SL ONE (20:00)
[2024-09-04] MEDS ORDERED: lamoTRIgine 100 MG TAB PO SCH (21:00)
[2024-09-04] MEDS ORDERED: GABAPENTIN 300 MG CAP PO SCH (21:00)
[2024-09-04] MEDS ORDERED: PANTOPRAZOLE SODIUM 40 MG TABEC PO SCH (21:00)
[2024-09-04] MEDS ORDERED: METOCLOPRAMIDE HCL 10 MG TAB PO ONE (21:30)
[2024-09-05] MEDS ORDERED: CALCIUM CARBONATE 500 MG CHEW PO SCH (08:00)
[2024-09-05 10:27] VITALS: BP 139/76
== END 2024-09-05 10:28 | disposition home or self-care (01) ==
LOC: ED 14:21
PROVIDERS: Emergency Medicine
DX: F22 Delusional disorders (principal); F15.10 Other stimulant abuse, uncomplicated; I10 Essential (primary) hypertension; F17.200 Nicotine dependence, unspecified, uncomplicated; Z79.899 Other long term (current) drug therapy; Z88.5 Allergy status to narcotic agent; Z88.0 Allergy status to penicillin
CPT/HCPCS: 36415; 80053; 80307; 81001; 84443; 84703; 85025; 94660; 99285; A9270; A9270-GY; G0480

== ENCOUNTER 2024-12-23 16:07 | Emergency (ER) | payer OTHER ==
[~2024-12-23] VITALS: Ht 162.6 cm; Wt 70.0 kg
[~2024-12-23 16:07] MED LIST changes: +AMLODIPINE BESYL5 MG PO
[2024-12-23] MEDS ORDERED: BUPRENORPHINE-1 EACH SL (16:23)
[2024-12-23] MEDS ORDERED: DOCUSATE SODIU100 MG PO (16:24)
[2024-12-23] MEDS ORDERED: GABAPENTIN600 MG PO (16:24)
[2024-12-23] MEDS ORDERED: ACYCLOVIR800 MG PO (16:24)
[2024-12-23] MEDS ORDERED: PANTOPRAZOLE SO20 MG PO (16:24)
[2024-12-23] MEDS ORDERED: METFORMIN HCL500 MG PO (16:24)
[2024-12-23] MEDS ORDERED: OXYBUTYNIN CHLOR5 M1 PO (16:24)
[2024-12-23] MEDS ORDERED: ALBUTEROL/IPRATROPIUM 3 ML NEB INH ONE (16:30)
[2024-12-23] MEDS ORDERED: methylPREDNISolone SOD SUCC 125 MG/2 ML VIAL IV ONE (17:30)
[2024-12-23] MEDS ORDERED: ALBUTEROL SULFATE 0.083% 3 ML VIAL INH ONE ×2 (17:30→18:30)
[2024-12-23 17:33] LABS: BASOPHILS 0.2 % (0-2); EOSINOPHILS 0.5 % (0-6); HEMATOCRIT 37.5 % (35.0-50.0); HEMOGLOBIN 12.7 g/dL (12.0-18.0); LYMPHOCYTES 5.6 % (24-44); MCH 28.3 (27-36); MCHC 33.8 g/dl (30-36); MCV 83.8 fl (81-99); MONOCYTES 3.3 % (0-12); NEUTROPHILS 90.4 % (39-80); PLATELET COUNT 313 K/uL (140-440); RBC 4.48 M/ul (4.3-5.7); RDW 14.2 (10.5-15.0)
[2024-12-23] MEDS ORDERED: LORazepam 1 MG TAB PO ONE (17:45)
[2024-12-23 17:55] LABS: ALBUMIN 3.3 g/dL (3.4-5.0); ALBUMIN/GLOBULIN RATIO 0.92 (1.1-2.4); ANION GAP 12.5 (7-21); BILIRUBIN, TOTAL 0.4 mg/dL (0.2-1.0); BUN/CREATININE RATIO 18.42 (6.0-28.6); CALCIUM 8.5 mg/dL (8.5-10.1); CREATININE, SERUM 0.76 mg/dL (0.55-1.02); POTASSIUM 3.5 mmol/L (3.5-5.1); PROTEIN, TOTAL 6.9 g/dL (6.4-8.2)
[2024-12-23] MEDS ORDERED: PREDNISONE20 MG PO (19:59)
[2024-12-23] MEDS ORDERED: VENTOLIN HFA18 GM INH (19:59)
[2024-12-23] MEDS ORDERED: DOXYCYCLINE HY100 MG PO (19:59)
[2024-12-23] MEDS ORDERED: ALBUTEROL SULFATE 8 GM HOME.PACK INH ONE (20:00)
[2024-12-23] MEDS ORDERED: DOXYCYCLINE HYCLATE 100 MG CAP PO ONE (20:00)
[2024-12-23] MEDS ORDERED: INHALER, ASSIST DEVICES 1 EACH SPACER MISC ONE (20:00)
[2024-12-23 20:11] VITALS: BP 131/92
--- NOTE | 2024-12-24 17:38 | EKG ---
[facility] [address] [facility] [place] [address] Signed Normal sinus rhythm Normal ECG When compared with ECG of 10-MAR-2020 22:16, Vent. rate has increased BY 37 BPM Nonspecific T wave abnormality now evident in Anterior leads Confirmed by Barrie Valenzuela DO ([id number]) on 12/24/2024 5:38:18 PM Electronically Signed By: BARRIE VALENZUELA DO 12/24/24 1738 PATIENT NAME: CHANTAL FOSS AIXA Electrocardiogram DATE OF : 83 PHYSICIAN: BARRIE VALENZUELA DO REPORT #: [id number] REPORT IS CONFIDENTIAL AND NOT TO BE RELEASED WITHOUT AUTHORIZATION
== END 2024-12-23 20:15 | disposition home or self-care (01) ==
LOC: ED 16:07
PROVIDERS: Emergency Medicine
DX: J40 Bronchitis, not specified as acute or chronic (principal); I10 Essential (primary) hypertension; F17.200 Nicotine dependence, unspecified, uncomplicated; Z79.84 Long term (current) use of oral hypoglycemic drugs; Z79.899 Other long term (current) drug therapy; Z88.5 Allergy status to narcotic agent; Z88.0 Allergy status to penicillin
CPT/HCPCS: 36415; 71045; 80053; 83880; 84484; 85025; 93005; 93010; 94640; 96374; 99285-25; A9270-GY; J2919